=== PATIENT | male | born 1995 | race Two or more races ===

== ENCOUNTER 2018-03-16 16:44 | Emergency (ER) | payer SELFPAY ==
[~2018-03-16] VITALS: Ht 172.7 cm; Wt 118.7 kg
[~2018-03-16 16:44] MED LIST: TRAMADOL HCL50 MG PO; TYLENOL325 M1 PO
[2018-03-16] MEDS ORDERED: DELTASONE20 M1 PO (17:57)
[2018-03-16 18:04] VITALS: BP 117/84
== END 2018-03-16 18:05 | disposition home or self-care (01) ==
LOC: EME 16:44 → EXP 16:44
DX: J02.9 Acute pharyngitis, unspecified (principal); L30.9 Dermatitis, unspecified
CPT/HCPCS: 87651 90; 99281; 99283